=== PATIENT | female | born 1965 | race Caucasian/White ===

== ENCOUNTER → 2023-08-23 09:33 | Outpatient (RCR) | payer BC, SELFPAY ==
--- NOTE | 2020-05-28 15:55 | MHC.SP.ADU ---
Referring provider: Dr. Peter Kerns Reason for Referral: Pt with diagnosis of spasmodic dysphonia Type of Treatment: 24808 Behavioral and Qualitative Analysis of Voice and Resonance Date of Plan of Treatment: 05/22/20 Onset of Symptoms/Illness: 11/21/18 Medical Diagnosis: colonic polyp, cystic thyroid nodule (left lobe), seizure disorder, sinus congestion, tonsillectomy, schwannoma of ankle, wrist, arm, right sided cavernous malformation and new right sided hearing loss Primary Speech Language Diagnosis: R49.0 Dysphonia Secondary Speech Language Diagnosis: History Marii is a 55 year old female who was referred for a speech evaluation by her PCP, Dr. Peter Kerns. Marii reported the onset of voice difficulties (cracking, hoarseness) in November 2017. She participated in voice therapy at [facility] for 2-3 months in the fall and did not feel her voice improved. She most recently reported a constant whoosh sound in her right ear that suddenly developed after her second Pfizer Covid vaccine she received 04/15/20. Marii reported hearing a pulse beating when a room is quiet. Per Marii, her PCP prescribed Prednisone as well as an antibiotic with no success. An audiological evaluation was completed in April at [facility] and revealed right sided hearing loss. Marii reported that a follow-up MRI of her brain was recommended, which is scheduled for 05/24/20. Marii reported that she last had a laryngeal videostroboscopy performed by Dr. Edgar, a neuro ENT in [place], in the fall, at which time no vocal cord abnormalities were noted. Per Marii, her voice worsens when she is stressed, nervous, or upset. If she is relaxed, spending time with friends/family and having a glass or two of wine, she reported that her voice is ?not nearly as bad?. Medical History: Allergies Seizures Thyroid Issues Voice Changes Other: Marii has a family history of breast cancer (mother), cardiovascular disease (paternal Grandfather), colon cancer (maternal Grandfather), depression (brother, maternal uncle), multiple sclerosis (paternal half aunt), and Parkinsonism (father). Marii also reported that in the fall, she had an ultrasound that revealed a nodule on her thyroid gland which was aspirated. She has a follow-up ultrasound scheduled for 05/28/20. An MRI of the brain was performed in 2019 at which time a cavernous malformation on the right side of her skull was found. Per the office visit notes provided by Marii's PCP, Marii reported tremors, especially while writing. She is not currently taking any medication for these tremors. Recent Hospitalizations: No Respiratory Needs: Room Air Patient Orientation: Alert & Oriented x 4 Social History: Employment Status: Heavy Cleaner Employed Current Living Situation: Marii resides in a single family home in [place]. Assistive Devices in use: Glasses/Contacts Comment: Marii reported that she wears cheaters when reading. Past Speech Language Therapy: Marii participated in voice therapy at [facility] in the Fall of 2018 for 2-3 months. Marii's therapy ceased at that time due to the onset of the Covid-19 pandemic. She reported that she did not notice any improvement in her voice with therapy. Other Therapies Seen in Current Calendar Year: None Swallowing History: Dysphagia Specific: Within Functional Limits Comments: Marii denied any dysphagia. Reported Speech, Language, Cognition difficulties: Voice Comments: Marii reported hoarseness and cracking. She further endorsed difficulty singing, reporting that she sounds like a 89 year old woman . She denied any shortness of breath while speaking or singing. Quality of Life: Marii reported that she is embarrassed by her vocal quality and avoids speaking when able to. Patient Stated Goal of Speech-Language Therapy: To improve her overall vocal quality. Assessment Informal Voice Assessment: Voice Loudness: Normal Voice Nasal Resonance: Normal Hypernasal Voice Oral Resonance: Normal Voice Phonatory-based Quality: Hoarse Quivering Tremor Voice Pitch: Limited Variation Pitch Breaks Impressions and Recommendations Summary: The Voice Handicap Index (VHI) is a self rating scale used to determine the biopsychosocial impact of voice disorders. This scale consists of 3 components: functional, physical, and emotional. Using a 5 point rating scale where 0 represents never and 4 represents always , Marii achieved a score of 99. Scores between 60-120 indicate a severe level of voice impairment often seen with individuals who have vocal fold paralysis or vocal fold scarring (VHI, Apolonia, Ricki Olivera, Naeem Ferraro Benninger 1997). Per the VHI, Marii noted that individuals have trouble understanding her both in quiet and in noisy settings. Her responses indicate that her voice difficulties restrict her personal/social life and that she speaks less with individuals because of her dysphonia. An s/z ratio is a tool that can be a clinical indicator of laryngeal pathology. During this task, Marii was asked to sustain /s/ for as long as she was able. She was then asked to to prolong /z. These two times are then divided, achieving an s/z ratio. /S/ and /z/ are utilized as both sounds are made in the same manner except for /s/ in an unvoiced sound (the vocal cords do not vibrate during production of /s/) and /z/ is a voiced sound (the vocal cords vibrate during production of /z/). In individuals without vocal cord pathology, a ratio is 1.0 is expected; an individual should prolong both sounds for around the same amount of time. In individuals with vocal cord pathology, a ratio of greater than 1.0 is expected, as difficulty sustaining a voiced sound is typically expected. Marii achieved 2 varying s/z ratios, 0.64 and 0.28. Marii was able to sustain the voiced /z/ for much longer (28 and 40 seconds) than the unvoiced /s/ (18 and 11 seconds). During production of /z/, an audible vocal tremor/quivering was noted. Mild hypernasality was also demonstrated during prolongation of /z/. Marii achieved average/near average prolongation times for /s/. Per Sheila and Shimon 1981, the average time for sustaining /s/ in women aged 16 years and older was found to be 15 seconds. During production of pitch glides, where Marii was asked to hold a vowel and move from a low pitch to a high pitch and then vice versa, Marii demonstrated difficulty achieving higher pitches. Marii achieved a maximum phonation time of 21 seconds, which is considered to be within normal limits. Adult females typically sustain a vowel between 15 and 25 seconds. Impact on Daily Function/Activity Limitations: Daily Activities: Severe Interpersonal Interactions: Severe Employment: Severe Community: Severe Prognosis for Improvement: Good Comment: Marii is highly motivated to improve her vocal function. Recommendation for Speech Therapy: Pending clearance from an ENT. Shelter Goals: Due to the length of time that has passed since Marii was last evaluated by an ENT (fall) as well as new medical issues that have since developed, it is recommended that Marii be evaluated by an ENT. A repeat videostroboscopy is recommended in order to rule in/out any vocal cord pathology. Marii's PCP also had recently recommended a repeat ENT consultation. Pending clearance from an ENT, voice therapy is recommended. Following completion of a repeat videostroboscopy, Marii will call [facility] to schedule voice therapy sessions. Recommended Referrals to be Discussed with Primary Care Provider: ENT Consult Neurology consult Patient Education: Completed: Yes Patient/Caregiver Education: Described Results of Evaluation Patient expressed understanding of evaluation Patient agrees with goals and treatment plan Comments/Barriers to Learning: Park Landscape Architect Clinican/Clinical Fellow: No Supervisory Statement: N/A Speech Language Pathologist: Lianne Aguilar M.A., CCC-FRUIT FARMWORKER
== END | disposition home or self-care (01) ==
LOC: HO.SH 05-22 10:32
PROVIDERS: Visit Provider Internal Medicine
DX: R49.0 Dysphonia (principal)
CPT/HCPCS: 92524